=== PATIENT | female | born 1995 | race Caucasian/White ===

== ENCOUNTER 2023-10-14 05:29 | Observation (INO) | payer BC ==
[2023-10-14] MEDS ORDERED: Terbutaline Sulfate 1 MG/ML VIAL ONE (06:57)
[2023-10-14] MEDS ORDERED: Terbutaline Sulfate 1 MG/ML VIAL SC SCH (07:00)
[2023-10-14] MEDS ORDERED: Oxytocin 30 units/NS 500 ML 500 ML IV SCH (07:11)
[2023-10-14] MEDS ORDERED: Lidocaine 1% (PF) 30 ML VIAL SC PRN (07:11)
[2023-10-14] MEDS ORDERED: hydrALAZINE 20 MG/ML VIAL SLOW IVP PRN (07:11)
[2023-10-14] MEDS ORDERED: Ondansetron PF 4 MG/2 ML Vial IVP PRN (07:11)
[2023-10-14] MEDS ORDERED: Lactated Ringer's 1,000 ML IV SCH (07:11)
[2023-10-14] MEDS ORDERED: Promethazine HCl 25 MG/ML VIAL IM PRN (07:11)
[2023-10-14 07:23] VITALS: BMI 41.5
[2023-10-14 07:28] LABS: Hematocrit 33.3 % (34.9-44.5); Hemoglobin 10.7 g/dL (12.0-15.5); Mean Corpuscular HGB CONC 32.1 g/dL (32.0-36.0); Mean Corpuscular Hemoglobin 26.2 pg (27.0-33.0); Mean Corpuscular Volume 81.6 fl (81.6-98.3); Mean Platelet Volume 9.7 fl (7.4-10.4); Platelet Count 330 10x3/uL (150-450); RBC Distribution Width 17.9 % (11.5-14.5); Red Blood Cell (RBC) Count 4.08 10x6/uL (3.90-5.03); White Blood Cell (WBC) Count 10.4 10x3/uL (3.5-10.5)
[2023-10-14 07:56] LABS: Syphilis Antibody Nonreactive (Nonreactive); Syphilis Antibody Index 0.05 S/CO (<1.00 Non-Reactive)
[2023-10-14 07:57] LABS: HBSAg Index 0.18 S/CO (0-0.99); Hep B Surf Ag - L&D Non-Reactive S/CO (NonReactive)
[2023-10-14] MEDS ORDERED: Mineral Oil ENEMA FS SCH (08:00)
== END 2023-10-14 09:50 | disposition home or self-care (01) ==
LOC: CSHLD 05:29
PROVIDERS: ADMIT Student in an Organized Health Care Education/Training Program; ATTEND Student in an Organized Health Care Education/Training Program
DX: O32.1XX0 Maternal care for breech presentation, not applicable or unspecified (principal); Z3A.38 38 weeks gestation of pregnancy; Z91.018 Allergy to other foods
CPT/HCPCS: 85027; 86780; 86850; 86900; 86901; 87340

== ENCOUNTER 2023-11-03 19:00 | Inpatient (IN) | payer BC ==
[2023-11-03 23:36] VITALS: BMI 41.5
[2023-11-04 00:36] LABS: Hematocrit 31.2 % (34.9-44.5); Hemoglobin 10.5 g/dL (12.0-15.5); Mean Corpuscular HGB CONC 33.7 g/dL (32.0-36.0); Mean Corpuscular Hemoglobin 27.3 pg (27.0-33.0); Mean Platelet Volume 10.4 fl (7.4-10.4); Platelet Count 296 10x3/uL (150-450); RBC Distribution Width 17.8 % (11.5-14.5); Red Blood Cell (RBC) Count 3.85 10x6/uL (3.90-5.03); White Blood Cell (WBC) Count 11.7 10x3/uL (3.5-10.5)
[2023-11-04 01:04] LABS: HBSAg Index 0.19 S/CO (0-0.99); Hep B Surf Ag - L&D Non-Reactive S/CO (NonReactive); Syphilis Antibody Nonreactive (Nonreactive); Syphilis Antibody Index 0.05 S/CO (<1.00 Non-Reactive)
[2023-11-04] MEDS ORDERED: Misoprostol 100 MCG TAB ONE (01:32)
[2023-11-04] MEDS ORDERED: Oxytocin 30 units/NS 500 ML 500 ML IVPB SCH (02:15)
[2023-11-04] MEDS ORDERED: Misoprostol 200 MCG TAB RC PRN (02:15)
[2023-11-04] MEDS ORDERED: Methylergonovine 0.2 MG/ML VIAL IM PRN (02:15)
[2023-11-04] MEDS ORDERED: Lactated Ringer's 1,000 ML IV SCH (02:15)
[2023-11-04] MEDS ORDERED: Carboprost 250 MCG/ML AMP IM PRN (02:15)
[2023-11-04] MEDS ORDERED: Diphenoxylate HCl/Atropine Tablet PO PRN (02:15)
[2023-11-04] MEDS ORDERED: hydrALAZINE 20 MG/ML VIAL SLOW IVP PRN (02:15)
[2023-11-04] MEDS ORDERED: Ibuprofen 800 MG TAB PO PRN (02:15)
[2023-11-04] MEDS ORDERED: Ondansetron PF 4 MG/2 ML Vial IVP PRN (02:15)
[2023-11-04] MEDS ORDERED: Oxytocin 30 units/NS 500 ML 500 ML IV SCH (02:15)
[2023-11-04] MEDS ORDERED: Lidocaine 1% (PF) 30 ML VIAL SC PRN (02:15)
[2023-11-04] MEDS: Misoprostol 100 MCG TAB VAG SCH ×3 (04:41→14:06)
[2023-11-04] MEDS: Promethazine HCl 25 MG/ML VIAL IM PRN (20:00)
[2023-11-05] MEDS: Promethazine HCl 25 MG/ML VIAL IM PRN (02:37)
[2023-11-05] MEDS ORDERED: fentaNYL/Ropivacaine Epidural 100 ML ONE (10:59)
[2023-11-05] MEDS ORDERED: Lactated Ringer's 500 ML IV PRN (11:36)
[2023-11-05] MEDS ORDERED: Promethazine HCl 25 MG/ML VIAL IM PRN ×2 (11:36→22:07)
[2023-11-05] MEDS ORDERED: Naloxone HCl 0.4 mg/ml Vial IVP PRN ×4 (11:36→22:07)
[2023-11-05] MEDS ORDERED: Acetaminophen 325 MG TAB PO PRN (11:36)
[2023-11-05] MEDS ORDERED: Ondansetron PF 4 MG/2 ML Vial IVP PRN ×3 (11:36→22:07)
[2023-11-05] MEDS ORDERED: ePHEDrine Sulfate 50 MG/10 ML VIAL SLOW IVP PRN (11:36)
[2023-11-05] MEDS ORDERED: diphenhydrAMINE 50 MG/ML VIAL IVP PRN ×2 (11:36→22:07)
[2023-11-05] MEDS ORDERED: Moisturizing Cream (Eucerin) 113 GM JAR TOP PRN ×2 (11:36→22:07)
[2023-11-05] MEDS ORDERED: fentaNYL 2 mcg/Ropivacaine 0.2% Epidural 100 ML CADD EPIDURAL SCH (11:45)
[2023-11-05] MEDS ORDERED: Communication Order-Pharmacy FS SCH ×2 (11:45→22:15)
[2023-11-05] MEDS ORDERED: CEFAZOLIN 2 GM VIAL ONE (19:27)
[2023-11-05] MEDS ORDERED: Azithromycin 500 MG VIAL ONE (19:28)
[2023-11-05] MEDS ORDERED: Bicitra 30 ML UDCUP PO PRN (20:07)
[2023-11-05] MEDS ORDERED: Famotidine/PF 20 mg/2ml Vial SLOW IVP PRN (20:07)
[2023-11-05] MEDS ORDERED: CEFAZOLIN 3 GM in Sodium Chloride 0.9% 100 ML IVPB SCH (20:15)
[2023-11-05] MEDS ORDERED: Azithromycin 500 MG in Sodium Chloride 0.9% 250 ML 250 ML IVPB SCH (20:15)
[2023-11-05] MEDS ORDERED: CEFAZOLIN 1 GM VIAL ONE (20:24)
[2023-11-05] MEDS ORDERED: Lidocaine 2% MPF 10 ML AMP (For Epidural Use) ONE (20:26)
[2023-11-05] MEDS ORDERED: Metoclopramide HCl 10 MG/2 ML VIAL ONE (20:35)
[2023-11-05] MEDS ORDERED: Morphine PF 10 MG/10 ML VIAL ONE (20:35)
[2023-11-05] MEDS ORDERED: Ketorolac Tromethamine 30 MG/ML VIAL ONE (20:35)
[2023-11-05] MEDS ORDERED: Dexamethasone 4 mg/ml Vial ONE (20:35)
[2023-11-05] MEDS ORDERED: Oxytocin 10 UNITS/ML VIAL ONE ×2 (20:35→21:07)
[2023-11-05] MEDS ORDERED: KETAMINE 100 MG/ML (5ML VIAL) ONE (20:55)
[2023-11-05] MEDS ORDERED: Midazolam HCl 2 mg/2 ml Vial ONE (21:00)
[2023-11-05 21:28] LABS: Analyzer IN Cardio CS NICU; RapidComm Collect By CBN
[2023-11-05 21:29] LABS: Analyzer IN Cardio CS NICU; RapidComm Collect By CBN; pH (Cord, venous) 7.327 (7.250-7.350)
[2023-11-05] MEDS ORDERED: Morphine 4 MG/ML VIAL SLOW IVP PRN (22:07)
[2023-11-05] MEDS ORDERED: hydrALAZINE 20 MG/ML VIAL SLOW IVP PRN (22:07)
[2023-11-05] MEDS ORDERED: Meperidine HCl/PF 25 MG/ML VIAL SLOW IVP PRN (22:07)
[2023-11-05] MEDS ORDERED: Promethazine HCl 25 MG SUPP PR PRN (22:07)
[2023-11-05] MEDS ORDERED: Naloxone HCl 0.4 mg/ml Vial IV PRN (22:07)
[2023-11-05] MEDS ORDERED: fentaNYL 50 mcg/mL 1 mL Vial SLOW IVP PRN (22:07)
[2023-11-05] MEDS ORDERED: Boostrix 0.5 ML (Tdap) VIAL (>/=7 yrs of age) IM ONE (22:07)
[2023-11-05] MEDS ORDERED: Methylergonovine 0.2 MG/ML VIAL IM SCH (22:15)
[2023-11-05] MEDS: Acetaminophen 500 MG TAB PO SCH (23:30)
[2023-11-06] MEDS ORDERED: Furosemide 20 MG TAB PO SCH (01:00)
[2023-11-06 05:29] LABS: Hematocrit 29.9 % (34.9-44.5); Hemoglobin 9.9 g/dL (12.0-15.5); Mean Corpuscular HGB CONC 33.1 g/dL (32.0-36.0); Mean Corpuscular Hemoglobin 27.1 pg (27.0-33.0); Mean Corpuscular Volume 81.9 fl (81.6-98.3); Mean Platelet Volume 10.5 fl (7.4-10.4); Platelet Count 288 10x3/uL (150-450); RBC Distribution Width 18.1 % (11.5-14.5); Red Blood Cell (RBC) Count 3.65 10x6/uL (3.90-5.03); White Blood Cell (WBC) Count 20.6 10x3/uL (3.5-10.5)
[2023-11-06] MEDS: Ketorolac Tromethamine 30 MG/ML VIAL IVP PRN ×3 (05:39→17:25)
[2023-11-06 06:25] LABS: Creatinine, Urine 223.73 mg/dL (47-110)
[2023-11-06] MEDS: Acetaminophen 500 MG TAB PO SCH ×4 (06:31→23:24)
[2023-11-06] MEDS: Misoprostol 100 MCG TAB VAG SCH ×2 (07:22→08:36)
[2023-11-06 07:35] LABS: ALT (SGPT) 14 U/L (8-55); AST (SGOT) 16 U/L (5-34); Albumin 2.7 g/dL (3.5-5.0); Alkaline Phosphatase 120 U/L (40-110); Anion Gap 13 mmol/L (10-20); BUN (Urea Nitrogen) 13 mg/dL (7.0-18.7); Bilirubin, Total 0.3 mg/dL (0.2-1.2); Calc. Creatinine Clearance 199 mL/min (70-130); Calcium 8.3 mg/dL (7.8-10.44); Carbon Dioxide 19 mmol/L (22-29); Chloride 106 mmol/L (98-107); Estimated GFR 112; Globulin 2.3 g/dL (2.4-3.5); Glucose 101 mg/dL (70-105); Potassium 4.4 mmol/L (3.5-5.1); Sodium 134 mmol/L (136-145)
[2023-11-06] MEDS: Simethicone Chewable 80 MG TAB PO PRN ×4 (08:51→23:43)
[2023-11-06] MEDS: Docusate 100 MG CAP PO SCH ×2 (08:52→21:29)
[2023-11-06] MEDS: Ferrous Sulfate 325 MG TAB PO SCH (08:52)
[2023-11-06] MEDS: Labetalol HCl 200 MG TAB PO SCH ×2 (08:52→21:29)
[2023-11-06] MEDS: Prenatal Vitamin 1 TAB PO SCH (08:52)
[2023-11-06] MEDS ORDERED: HYDROcodone/Acetaminophen 5/325 mg Tablet PO PRN (10:15)
[2023-11-06] MEDS: HYDROcodone/Acetaminophen 5/325 mg Tablet PO PRN ×3 (12:18→20:32)
[2023-11-07] MEDS: Ketorolac Tromethamine 30 MG/ML VIAL IVP PRN (00:06)
[2023-11-07] MEDS: HYDROcodone/Acetaminophen 5/325 mg Tablet PO PRN (00:15)
[2023-11-07] MEDS ORDERED: Polyethylene Glycol 3350 17 GM Packet PO SCH (05:15)
[2023-11-07] MEDS: Acetaminophen 500 MG TAB PO SCH (07:17)
[2023-11-07] MEDS: Ferrous Sulfate 325 MG TAB PO SCH (08:31)
[2023-11-07] MEDS: Prenatal Vitamin 1 TAB PO SCH (08:31)
[2023-11-07] MEDS: Docusate 100 MG CAP PO SCH (08:31)
[2023-11-07] MEDS: Labetalol HCl 200 MG TAB PO SCH (08:32)
[2023-11-07 08:55] VITALS: TEMP 98.2
[2023-11-07 11:46] VITALS: BP 131/63
[2023-11-07] MEDS ORDERED: Ibuprofen 800 MG TAB PO SCH (14:00)
== END 2023-11-07 13:45 | disposition home or self-care (01) | DRG 788 ==
LOC: CSHLD 22:57 → CSHPP 11-06 00:10
PROVIDERS: ADMIT Student in an Organized Health Care Education/Training Program; ATTEND Student in an Organized Health Care Education/Training Program
PROC: 10D00Z1 Extraction of Products of Conception, Low, Open Approach (ICD-10-PCS; principal; 2023-11-05)
PROC: 3E0P7VZ Introduction of Hormone into Female Reproductive, Via Natural or Artificial Opening (ICD-10-PCS; 2023-11-05)
PROC: 10H07YZ Insertion of Other Device into Products of Conception, Via Natural or Artificial Opening (ICD-10-PCS; 2023-11-05)
PROC: 4A133R1 Monitoring of Arterial Saturation, Peripheral, Percutaneous Approach (ICD-10-PCS; 2023-11-05)
PROC: 3E033XZ Introduction of Vasopressor into Peripheral Vein, Percutaneous Approach (ICD-10-PCS; 2023-11-05)
DX: O76 Abnormality in fetal heart rate and rhythm complicating labor and delivery (principal); O48.0 Post-term pregnancy; Z3A.41 41 weeks gestation of pregnancy; O62.1 Secondary uterine inertia; O32.4XX0 Maternal care for high head at term, not applicable or unspecified; Z37.0 Single live birth
CPT/HCPCS: 36415; 51702; 80053; 82570; 82805; 84156; 85027; 86780; 86850; 86900; 86901; 87340; J0360; J1100; J1885; J2175; J2210; J2250; J2274; J2405; J2550; J2590; J2765; J3010; J3490; S0028

== ENCOUNTER 2024-02-09 16:06 | Emergency (ER) | payer BC ==
[2024-02-09 16:49] LABS: #Basophils 0.05 10x3/uL (0.0-0.2); #Eosinphils 0.45 10x3/uL (0.0-0.5); #Monocytes 0.62 10x3/uL (0.0-1.1); #Neutrophils 6.55 10x3/uL (1.5-8.4); %Basophils 0.5 % (0.0-2.0); %Eosinophils 4.5 % (0.0-6.0); %Lymphocytes 22.6 % (18.0-47.0); %Monocytes 6.2 % (0.0-10.0); Hematocrit 41.1 % (34.9-44.5); Hemoglobin 13.6 g/dL (12.0-15.5); Mean Corpuscular HGB CONC 33.1 g/dL (32.0-36.0); Mean Corpuscular Hemoglobin 26.9 pg (27.0-33.0); Mean Corpuscular Volume 81.4 fl (81.6-98.3); Mean Platelet Volume 9.2 fl (7.4-10.4); Platelet Count 412 10x3/uL (150-450); RBC Distribution Width 15.1 % (11.5-14.5); Red Blood Cell (RBC) Count 5.05 10x6/uL (3.90-5.03); White Blood Cell (WBC) Count 9.9 10x3/uL (3.5-10.5)
[2024-02-09 17:03] LABS: Acetaminophen Less than 10 mcg/mL (10.0-30.0); Alcohol Less than 10.0 mg/dL (Less than 10); Salicylate Less than 8.0 mg/dL (15.0-30.0)
[2024-02-09 17:04] LABS: ALT (SGPT) 30 U/L (8-55); AST (SGOT) 19 U/L (5-34); Albumin 3.9 g/dL (3.5-5.0); Alkaline Phosphatase 104 U/L (40-110); Anion Gap 14 mmol/L (10-20); BUN (Urea Nitrogen) 11 mg/dL (7.0-18.7); Bilirubin, Total 0.4 mg/dL (0.2-1.2); Calc. Creatinine Clearance 0 mL/min (70-130); Calcium 9.3 mg/dL (7.8-10.44); Carbon Dioxide 22 mmol/L (22-29); Chloride 107 mmol/L (98-107); Estimated GFR 92; Glucose 94 mg/dL (70-105); Protein, Total 6.9 g/dL (6.0-8.3); Sodium 139 mmol/L (136-145)
[2024-02-09 17:37] LABS: Bilirubin Neg (Negative); Blood, Urine 25 (Negative); Clarity Clear (Clear); Glucose, Urine (Dipstick) Normal (Negative); Ketone, Urine Negative (Negative); Leukocyte Negative (Negative); Nitrite Negative (Negative); Protein, Urine (Dipstick) Negative (Neg-Trace); Specific Gravity, Urine 1.025 (1.005-1.030); Urobilinogen Normal mg/dL (Less than 2)
[2024-02-09 18:09] LABS: Bacteria/HPF 1+ HPF (None Seen); CAUTI Indications for Culture Alt mental st,lethar; Mucous/LPF 1+ LPF (<2+); RBC/HPF 0-3 HPF (0-3); Squamous Epithelial 0-3 HPF (0-3); Urine Culture Reflex No No; WBC/HPF 0-3 HPF (0-3)
[2024-02-09 20:19] LABS: Amphetamine Not Detected (NotDetected); Barbiturates Screen Not Detected (NotDetected); Benzodiazepine Screen Not Detected (NotDetected); Cocaine Metabolite Screen Not Detected (NotDetected); Methadone Not Detected (NotDetected); Methamphetamine Not Detected (NotDetected); Opiate Screen Not Detected (NotDetected); Oxycodone Screen Not Detected (NotDetected); Phencyclidine (PCP) Not Detected (NotDetected); THC/Cannabinoid Screen Not Detected (NotDetected); Tricyclic Screen Not Detected (NotDetected)
== END 2024-02-10 10:59 | disposition home or self-care (01) ==
LOC: EEVIPCON 16:06 → CSHERS 16:06
DX: O99.345 Other mental disorders complicating the puerperium (principal); F53.0 Postpartum depression
CPT/HCPCS: 36415; 80053; 80306; 80307; 81001; 84443; 85025; 99285